=== PATIENT | female | born 1975 | race African-American/Black ===

== ENCOUNTER 2021-10-31 09:07 | Emergency (ER) | payer OTHER ==
[~2021-10-31] VITALS: Ht 177.8 cm; Wt 110.0 kg
[2021-10-31] MEDS ORDERED: AMLODIPINE 10MG TABLET PO ONE (09:30)
[2021-10-31] MEDS ORDERED: LOSARTAN POTASSIUM 100 MG TABLET PO ONE (10:00)
[2021-10-31] MEDS ORDERED: CLONIDINE 0.3MG TABLET PO ONE (10:00)
[2021-10-31 13:34] VITALS: BP 160/98
== END 2021-10-31 13:34 | disposition home or self-care (01) ==
LOC: ER 09:20
DX: I16.1 Hypertensive emergency (principal); R00.0 Tachycardia, unspecified
CPT/HCPCS: 99283